=== PATIENT | female | born 1945 | race Caucasian/White ===

== ENCOUNTER 2017-11-07 15:25 | Inpatient (IN) ==
[2017-11-08 12:15] VITALS: BP 108/64
== END 2017-11-08 15:00 | disposition home or self-care (01) | DRG 291 ==
LOC: EDBD → EDUNIT# → N.ED 15:25 → N.EDINP 18:19 → N.5E 18:46
PROVIDERS: ADMIT Internal Medicine; ATTEND Internal Medicine

== ENCOUNTER 2021-03-14 09:17 | Observation (INO) ==
[2021-03-14] MEDS ORDERED: NITROGLYCERIN SL 0.4 MG TABLET SL STA (10:11)
[2021-03-14] MEDS ORDERED: ASPIRIN CHEW 81 MG TABLET PO STA (10:11)
[2021-03-14 10:13] LABS: Basophils # 0.1 10*3/uL (0.0-0.2); Basophils % 0.8 % (0.0-0.8); Eosinophils # 0.2 10*3/uL (0.0-0.87); Eosinophils % 2.6 % (0.00-10.9); Hematocrit 41.7 VOL% (35.7-47.0); Hemoglobin 13.8 GM/DL (12.0-16.0); Immature Granulocytes % 0.6 %; Immature Granulocytes Absolute 0.05 #; Lymphocytes # 2.4 10*3/uL (1.4-4.0); Mean Corpuscular HGB Conc 33.1 GM/DL (32-36); Mean Corpuscular Volume 94.1 FL (87-102); Mean Platelet Volume 11.7 FL (9.6-12.0); Monocytes % 6.6 % (1.7-12.7); Neutrophils % 58.4 % (38.7-73.9); Platelet Count 279 T/CUMM (130-400); Red Blood Count 4.43 MC/CUMM (3.8-5.5); Red Cell Distribution Width 12.3 % (9.3-17.3); White Blood Count 7.7 T/CUMM (4-12)
[2021-03-14 10:41] LABS: Albumin 3.9 G/DL (3.4-5.0); Bilirubin,Total 0.5 MG/DL (0.20-1.00); Calcium 9.5 MG/DL (8.5-10.1); Osmolality,Calculated 285.1 MOS/KG (273-304); Potassium 3.9 MMOL/L (3.5-5.1); Total Protein 8.1 G/DL (6.4-8.2)
[2021-03-14] MEDS ORDERED: MAGNESIUM SULF RIDER 4 GM/100 ML PREMIX IV PRN (13:24)
[2021-03-14] MEDS ORDERED: DOCUSATE SODIUM 100 MG CAPSULE PO PRN (13:24)
[2021-03-14] MEDS ORDERED: ONDANSETRON 4 MG/2 ML VIAL IV PRN (13:24)
[2021-03-14] MEDS ORDERED: ACETAMINOPHEN 325 MG TABLET PO PRN (13:24)
[2021-03-14] MEDS ORDERED: GLUCAGON 1 MG VIAL IM PRN (13:24)
[2021-03-14] MEDS ORDERED: NITROGLYCERIN SL 0.4 MG TABLET SL PRN (13:24)
[2021-03-14] MEDS ORDERED: MAGNESIUM SULF RIDER 2 GM/50 ML PREMIX IV PRN (13:24)
[2021-03-14] MEDS ORDERED: DEXTROSE 50% 25 GM/50 ML VIAL IV PRN (13:24)
[2021-03-14] MEDS ORDERED: ENOXAPARIN 40 MG/0.4 ML SYRINGE SUBCUT SCH (13:30)
[2021-03-14 13:54] LABS: Thyroid Stimulating Hormone 1.31 uIU/ml (0.358-3.74); VLDL Cholesterol 55.4 MG/DL
[2021-03-14] MEDS: INSULIN LISPRO 100 UNIT/ML SUBCUT SCH ×2 (16:44→22:28)
[2021-03-14] MEDS ORDERED: ALBUTEROL/IPRATROPIUM 3 ML NEB RESP TX SCH (19:00)
[2021-03-14] MEDS ORDERED: ALBUTEROL/IPRATROPIUM 3 ML NEB RESP TX PRN (19:00)
[2021-03-14] MEDS ORDERED: ATORVASTATIN 20 MG TABLET PO SCH (21:00)
[2021-03-14] MEDS ORDERED: MONTELUKAST 10 MG TABLET PO SCH (21:00)
[2021-03-14] MEDS ORDERED: INSULIN GLARGINE 100 UNIT/ML SUBCUT SCH (21:00)
[2021-03-14] MEDS: METOPROLOL TARTRATE 25 MG TABLET PO SCH (22:40)
[2021-03-15 07:00] LABS: Basophils # 0.1 10*3/uL (0.0-0.2); Basophils % 0.6 % (0.0-0.8); Eosinophils # 0.3 10*3/uL (0.0-0.87); Eosinophils % 2.7 % (0.00-10.9); Hematocrit 40.9 VOL% (35.7-47.0); Hemoglobin 13.5 GM/DL (12.0-16.0); Immature Granulocytes % 0.5 %; Immature Granulocytes Absolute 0.05 #; Lymphocytes # 3.7 10*3/uL (1.4-4.0); Lymphocytes % 39.6 % (21.3-54.2); Mean Corpuscular Volume 93.8 FL (87-102); Mean Platelet Volume 11.5 FL (9.6-12.0); Monocytes % 6.6 % (1.7-12.7); Platelet Count 243 T/CUMM (130-400); Red Blood Count 4.36 MC/CUMM (3.8-5.5); Red Cell Distribution Width 12.3 % (9.3-17.3); White Blood Count 9.3 T/CUMM (4-12)
[2021-03-15 07:22] LABS: Calcium 9.3 MG/DL (8.5-10.1); Osmolality,Calculated 283.4 MOS/KG (273-304); Potassium 3.4 MMOL/L (3.5-5.1)
[2021-03-15] MEDS ORDERED: POTASSIUM CHLORIDE 20 MEQ TABLET PO PRN (07:48)
[2021-03-15] MEDS: METOPROLOL TARTRATE 25 MG TABLET PO SCH (08:52)
[2021-03-15] MEDS: INSULIN LISPRO 100 UNIT/ML SUBCUT SCH ×2 (08:52→13:04)
[2021-03-15 09:00] VITALS: BP 122/73
[2021-03-15] MEDS ORDERED: ASPIRIN CHEW 81 MG TABLET PO SCH (09:00)
[2021-03-15] MEDS ORDERED: amLODIPine 5 MG TABLET PO SCH (09:00)
[2021-03-15] MEDS ORDERED: lisinopriL 5 MG TABLET PO SCH (09:00)
[2021-03-15] MEDS ORDERED: PANTOPRAZOLE 40 MG TABLET PO SCH (09:00)
== END 2021-03-15 11:57 | disposition home or self-care (01) ==
LOC: N.ED 09:17 → N.EDINP 09:17 → SUATTDRO 13:01 → N.5E 18:37
PROVIDERS: ADMIT Internal Medicine; ATTEND Internal Medicine

== ENCOUNTER 2022-03-21 13:32 | Observation (INO) ==
[2022-03-21 14:10] LABS: Basophils # 0.1 10*3/uL (0.0-0.2); Basophils % 0.9 % (0.0-0.8); Eosinophils # 0.3 10*3/uL (0.0-0.87); Eosinophils % 3.2 % (0.00-10.9); Hematocrit 40.3 VOL% (35.7-47.0); Hemoglobin 13.6 GM/DL (12.0-16.0); Immature Granulocytes % 0.6 %; Immature Granulocytes Absolute 0.05 #; Lymphocytes % 35.7 % (21.3-54.2); Mean Corpuscular HGB Conc 33.7 GM/DL (32-36); Mean Corpuscular Volume 93.1 FL (87-102); Mean Platelet Volume 11.6 FL (9.6-12.0); Monocytes # 0.6 10*3/uL (0.11-0.8); Monocytes % 6.9 % (1.7-12.7); Neutrophils % 52.7 % (38.7-73.9); Platelet Count 359 T/CUMM (130-400); Red Blood Count 4.33 MC/CUMM (3.8-5.5); Red Cell Distribution Width 12.7 % (9.3-17.3); White Blood Count 8.5 T/CUMM (4-12)
[2022-03-21 14:42] LABS: Bilirubin,Total 0.5 MG/DL (0.20-1.00); Calcium 9.1 MG/DL (8.5-10.1); Osmolality,Calculated 288.1 MOS/KG (273-304); Potassium 3.6 MMOL/L (3.5-5.1); Total Protein 7.3 G/DL (6.4-8.2)
[2022-03-21] MEDS ORDERED: KETOROLAC 30 MG/1 ML VIAL ONE (16:04)
[2022-03-21] MEDS ORDERED: DOCUSATE SODIUM 100 MG CAPSULE PO PRN (16:29)
[2022-03-21] MEDS ORDERED: GLUCAGON 1 MG VIAL IM PRN (16:29)
[2022-03-21] MEDS ORDERED: DEXTROSE 10% 250 ML BAG IV PRN (16:29)
[2022-03-21] MEDS ORDERED: ONDANSETRON 4 MG/2 ML VIAL IV PRN (16:29)
[2022-03-21] MEDS ORDERED: lisinopriL 10 MG TABLET PO STA (17:45)
[2022-03-21] MEDS: INSULIN LISPRO 100 UNIT/ML SUBCUT SCH ×2 (18:19→20:47)
[2022-03-21] MEDS ORDERED: SULFAMETHOX/TRIMETHOPRIM 800-160 MG TABLET ONE (18:24)
[2022-03-21 18:28] LABS: Thyroid Stimulating Hormone 1.24 uIU/ml (0.358-3.74)
[2022-03-21] MEDS: DICYCLOMINE 10 MG CAPSULE PO SCH ×3 (20:46→21:09)
[2022-03-21] MEDS: METOPROLOL SUCCINATE XL 50 MG TABLET PO SCH (20:46)
[2022-03-21] MEDS: hydrALAZINE 25 MG TABLET PO SCH (20:46)
[2022-03-21] MEDS: amLODIPine 5 MG TABLET PO SCH (20:46)
[2022-03-21] MEDS: FERROUS SULFATE 325 MG TABLET PO SCH (20:46)
[2022-03-21] MEDS: gemfibroziL 600 MG TABLET PO SCH (20:46)
[2022-03-21] MEDS ORDERED: ENOXAPARIN 40 MG/0.4 ML SYRINGE SUBCUT SCH (21:00)
[2022-03-21] MEDS ORDERED: ATORVASTATIN 20 MG TABLET PO SCH (21:00)
[2022-03-21] MEDS ORDERED: AMITRIPTYLINE 50 MG TABLET PO SCH (23:30)
[2022-03-21] MEDS: rOPINIRole 1 MG TABLET PO SCH (23:38)
[2022-03-21] MEDS: PREGABALIN 100 MG CAPSULE PO SCH (23:38)
[2022-03-21] MEDS: BUDESONIDE/FORMOTEROL 160-4.5 INHALER 6 GM INH SCH (23:38)
[2022-03-22 05:02] LABS: Basophils # 0.1 10*3/uL (0.0-0.2); Basophils % 0.7 % (0.0-0.8); Eosinophils # 0.2 10*3/uL (0.0-0.87); Hematocrit 35.5 VOL% (35.7-47.0); Hemoglobin 11.8 GM/DL (12.0-16.0); Immature Granulocytes % 0.3 %; Immature Granulocytes Absolute 0.02 #; Lymphocytes # 3.7 10*3/uL (1.4-4.0); Mean Corpuscular HGB Conc 33.2 GM/DL (32-36); Mean Corpuscular Volume 92.9 FL (87-102); Mean Platelet Volume 11.6 FL (9.6-12.0); Monocytes # 0.6 10*3/uL (0.11-0.8); Monocytes % 7.7 % (1.7-12.7); Neutrophils % 40.3 % (38.7-73.9); Platelet Count 304 T/CUMM (130-400); Red Blood Count 3.82 MC/CUMM (3.8-5.5); Red Cell Distribution Width 12.7 % (9.3-17.3); White Blood Count 7.6 T/CUMM (4-12)
[2022-03-22 05:35] LABS: Osmolality,Calculated 289.7 MOS/KG (273-304); Risk Ratio 4.78; VLDL Cholesterol 57.4 MG/DL
[2022-03-22] MEDS ORDERED: LEVOTHYROXINE 50 MCG TABLET PO SCH (07:30)
[2022-03-22] MEDS ORDERED: DONEPEZIL 10 MG TABLET PO SCH (09:00)
[2022-03-22] MEDS ORDERED: MONTELUKAST 10 MG TABLET PO SCH (09:00)
[2022-03-22] MEDS ORDERED: lisinopriL 5 MG TABLET PO SCH (09:00)
[2022-03-22] MEDS ORDERED: PANTOPRAZOLE 40 MG TABLET PO SCH (09:00)
[2022-03-22] MEDS ORDERED: INSULIN GLARGINE 100 UNIT/ML SUBCUT SCH ×2 (09:00→21:00)
[2022-03-22] MEDS ORDERED: ASPIRIN EC 81 MG TABLET PO SCH (09:00)
[2022-03-22] MEDS: rOPINIRole 1 MG TABLET PO SCH (09:57)
[2022-03-22] MEDS: hydrALAZINE 25 MG TABLET PO SCH (09:58)
[2022-03-22] MEDS: gemfibroziL 600 MG TABLET PO SCH (09:58)
[2022-03-22] MEDS: PREGABALIN 100 MG CAPSULE PO SCH (09:58)
[2022-03-22] MEDS: METOPROLOL SUCCINATE XL 50 MG TABLET PO SCH (09:58)
[2022-03-22] MEDS: amLODIPine 5 MG TABLET PO SCH (09:58)
[2022-03-22] MEDS: FERROUS SULFATE 325 MG TABLET PO SCH (09:58)
[2022-03-22] MEDS: DICYCLOMINE 10 MG CAPSULE PO SCH (09:59)
[2022-03-22] MEDS: BUDESONIDE/FORMOTEROL 160-4.5 INHALER 6 GM INH SCH (10:00)
[2022-03-22] MEDS: INSULIN LISPRO 100 UNIT/ML SUBCUT SCH ×2 (10:00→12:35)
[2022-03-22 20:51] VITALS: BP 153/74
[2022-03-23] MEDS ORDERED: ERGOCALCIFEROL 50,000 UNIT CAPSULE PO SCH (09:00)
== END 2022-03-22 13:20 | disposition home or self-care (01) ==
LOC: N.EDINP 13:32 → N.ED 13:32 → N.TELEN 18:45
PROVIDERS: ADMIT Internal Medicine; ATTEND Internal Medicine